=== PATIENT | female | born 1975 | race Two or more races ===

== ENCOUNTER 2016-07-13 12:58 | Emergency (ER) | payer MEDICAID ==
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
--- NOTE | 2016-07-14 09:08 | Diagnostic Imaging Report ---
Cervical spine (3 views) HISTORY: Pain There is straightening of the cervical lordosis that may be associated with spasm. Alignment is normal. Disc spaces are maintained. Minimal spur formation noted about the endplates of C5. No fractures. The prevertebral soft tissues appear normal. IMPRESSION: 1. No acute abnormalities 2. Minimal degenerative changes C5
== END 2016-07-13 15:10 | disposition short-term general hospital (02) ==
LOC: ER 12:58
DX: S16.1XXA Strain of muscle, fascia and tendon at neck level, initial encounter (principal); V43.52XA Car driver injured in collision with other type car in traffic accident, initial encounter; Y93.89 Activity, other specified; Y92.488 Other paved roadways as the place of occurrence of the external cause; Y99.8 Other external cause status
CPT/HCPCS: 72040-TC; Z7502

== ENCOUNTER 2017-02-26 16:40 | Inpatient (IN) | payer MEDICAID ==
[2017-02-26] MEDS ORDERED: Sodium Chloride 0.9% 1,000 ML IV ONE (16:51)
--- NOTE | 2017-02-26 16:51 | ED Physician Chart ---
ED Chief Complaint/HPI - Patient Information Date Seen:: 02/26/17 Time Seen:: 16:45 Chief Complaint:: Fever History of Present Illness:: onset x one day of fever, diffuse, crampy abd. pain, N/V/D, and H/As; pt denies LOC, ALOC, weakness, dizziness, S/T, neck pain, C/P, SOB, or urinary s/s Allergies:: Allergies Allergy/AdvReac Type Severity Reaction Status Date / Time No Known Allergies Allergy Verified 07/13/16 13:19 Historian:: Patient, Family Member Review:: Nurse's Note Reviewed ED Review of Systems - Review of Systems General/Constitutional: Fever, No chills, No weight loss, No weakness, No diaphoresis, No edema, No loss of appetite Skin: No skin lesions, No rash, No bruising Head: No headache, No light-headedness Eyes: No loss of vision, No pain, No diplopia ENT: No earache, No nasal drainage, No sore throat, No tinnitus Neck: No neck pain, No swelling, No thyromegaly, No stiffness, No mass noted Cardio Vascular: No chest pain, No palpitations, No PND, No orthopnea, No edema Pulmonary: No SOB, No cough, No sputum, No wheezing GI: Nausea, Vomiting, Diarrhea, Pain, No melena, No hematochezia, No constipation, No hematemesis G/U: Dysuria, Frequency, No hematuria Green Chain Operator: No vaginal discharge, No abnormal vaginal bleed, No contraction Musculoskeletal: No bone or joint pain, No back pain, No muscle pain Endocrine: No polyuria, No polydipsia Psychiatric: No prior psych history, No depression, No anxiety, No suicidal ideation Hematopoietic: No bruising, No lymphadenopathy Allergic/Immuno: No urticaria, No angioedema Neurological: No syncope, No focal symptoms, No weakness, No paresthesia, No headache, No seizure, No dizziness, No confusion, No vertigo ED Past Medical History - Past Medical History Obtainable: Yes Past Medical History: Other (UTI) Family History: HTN Social History: Non Smoker, No Alcohol, No Drug Use, , Employed Surgical History: Appendectomy, Cholecystectomy, Hysterectomy, Psychiatricy History: None Medication: Reviewed Family Medical History - Family Member Mother Ethnicity: Father Ethnicity: Living Status: Still Living Hx Family Diabetes: Yes ED Physical Exam - Physical Examination General/Constitutional: Awake, Well-developed, well-nourished, Alert, No distress, GCS 15, Non-toxic appearing, Ambulatory Head: Atraumatic Eyes: Lids, conjuctiva normal, PERRL, EOMI Skin: Nl inspection, No rash, No skin lesions, No ecchymosis, Well hydrated, No lymphadenopathy ENMT: External ears, nose nl, Nasal exam nl, Lips, teeth, gums nl Neck: Nontender, Full ROM w/o pain, No JVD, No nuchal rigidity, No bruit, No mass, No stridor Respiratory: Nl effort/Exclusion, Clear to Auscultation, No Wheeze/Rhonchi/Rales Cardio Vascular: RRR, No murmur, gallop, rubs, NL S1 S2 GI: No tenderness/rebounding/guarding, No organomegaly, No hernia, Normal BS's, Nondistended, No mass/bruits, No McBurney tenderness : No CVA tenderness Extremities: No tenderness or effusion, Full ROM, normal strength in all extremities, No edema, Normal digits & nails Neuro/Psych: Alert/oriented, DTR's symmetric, Normal sensory exam, Normal motor strength, Judgement/insight normal, Mood normal, Normal gait, No focal deficits Misc: Normal back, No paraspinal tenderness ED Labs/Radiology/EKG Results - Lab Results Results: K+: 3.2; Na+: 130; Cl-: 96; U/A; + WBCs; Elevated LFTs - EKG Interpretations EKG Time:: 17:19 Rate & Rhythm: 116; ST Comments:: non-specific st-t changes ED Septic Shock - . Is Septic Shock (SBP<90, OR Lactate>4 mmol\L) present?: No ED Reassessment (Disposition) - Diagnosis Diagnosis:: Dx: Dehydration; AGE; Hypokalemia; Hyponatremia; UTI - Aftercare/Follow up Instructions Aftercare/Follow-Up Instructions:: Counseled pt regarding lab results/diagnosis & need follow up, Counseled pt & family regarding lab results/diagnosis & need follow up - Patient Disposition Discharge/Transfer:: Acute Care w/in this hosp Accepting Physician:: Dr. De Oliveira Time Called:: 2149 Time Responded:: 21:50 Admitted to:: Telemetry Spoke to:: Dr. De Oliveira Admitting Medical Physician:: Dr. De Oliveira Condition at Disposition:: Stable, Improved
[2017-02-26 17:23] LABS: ALB/GLOB RATIO 0.9 (1.0-1.8); ALKALINE PHOSPHATASE 268 U/L (34-104); AMYLASE SERUM 13 U/L (29-103); ANION GAP 13.7 (7.0-16.0); BILIRUBIN,TOTAL 1.1 mg/dL (0.3-1.0); BUN - UREA NITROGEN 10 mg/dL (7-25); BUN/CREATININE RATIO 12.5; CARBON DIOXIDE 23.5 mEq/L (21.0-31.0); CHLORIDE 96 mEq/L (98-107); CREATININE - SERUM 0.8 mg/dL (0.6-1.2); GLUCOSE 128 mg/dL (70-105); POTASSIUM SERUM 3.2 mEq/L (3.5-5.1); SGOT 62 U/L (13-39); SGPT/ALT 117 U/L (7-52); SODIUM SERUM 130 mEq/L (136-145)
[2017-02-26 17:24] LABS: CHOLESTEROL 138 mg/dL (<200); TRIGLYCERIDES 162 mg/dL (<150)
[2017-02-26 17:47] LABS: LIPASE < 3 U/L (11-82)
[2017-02-26 17:58] LABS: INR 1.1 (0.5-1.4); PROTHROMBIN TIME (TEST) 11.5 SECONDS (9.5-11.5)
[2017-02-26 18:09] LABS: HEMOGLOBIN 12.4 gm/dL (12-16); RED BLOOD COUNT 4.22 Mil/cmm (3.80-5.10)
[2017-02-26 18:10] LABS: MEAN CELL VOLUME 89.9 fl (81-100); MEAN CORPUSCULAR HEMOGLOBIN 29.3 pg (27.0-31.0); MEAN CORPUSCULAR HGB CONC 32.6 pg (28.0-36.0); MEAN PLATELET VOLUME 7.6 fl; PLATELET COUNT 342 Th/cmm (150-400); RED CELL DISTRIBUTION WIDTH 11.8 % (11.5-20.0)
[2017-02-26 18:12] LABS: % BASOPHILS 0.4 % (0.0-2.0); % EOSINOPHILS 0.3 % (0.0-5.0); % LYMPHOCYTES 6.1 % (20.0-50.0); % MONOCYTES 0.3 % (2.0-10.0); % NEUTROPHILS 92.9 % (40.0-80.0); NEUTROPHILE ABSOLUTE 10.3 Th/cmm (1.8-8.0)
[2017-02-26 19:56] LABS: URINE BILIRUBIN NEGATIVE (NEGATIVE); URINE BLOOD LARGE (NEGATIVE); URINE GLUCOSE (UA) NEGATIVE (NEGATIVE); URINE KETONE NEGATIVE (NEGATIVE); URINE PH 5.5 (4.6 - 8.0); URINE PROTEIN TRACE mg/dL (NEGATIVE)
[2017-02-26 20:30] LABS: URINE BACTERIA NONE SEEN /hpf (NONE SEEN); URINE COLOR YELLOW; URINE EPITHELIAL CELLS NONE SEEN /lpf (FEW)
[2017-02-26] MEDS ORDERED: Potassium Chloride 20 mEq ER Tab PO ONE ×2 (20:45→20:48)
[2017-02-26] MEDS ORDERED: cefTRIAXone 1 GM in Sodium Chloride 0.9% 50 ML IV ONE (20:45)
[2017-02-26] MEDS ORDERED: HYDROmorphone 1 mg/mL 1mL Syr IVP PRN (22:57)
[2017-02-26] MEDS ORDERED: Sodium Chloride 0.9% 1,000 ML IV SCH (23:00)
[2017-02-27] MEDS: Sodium Chloride 0.9% 1,000 ML IV SCH ×2 (00:10→10:13)
[2017-02-27 00:22] VITALS: BP 104/62
[2017-02-27] MEDS: HYDROmorphone 1 mg/mL 1mL Syr IVP PRN ×4 (02:09→20:52)
[2017-02-27 06:17] LABS: HEMATOCRIT 32.9 % (41.0-60); HEMOGLOBIN 11.3 gm/dL (12-16); MEAN CELL VOLUME 89.3 fl (81-100); MEAN CORPUSCULAR HEMOGLOBIN 30.8 pg (27.0-31.0); MEAN CORPUSCULAR HGB CONC 34.5 pg (28.0-36.0); MEAN PLATELET VOLUME 7.7 fl; PLATELET COUNT 288 Th/cmm (150-400); RED BLOOD COUNT 3.68 Mil/cmm (3.80-5.10); RED CELL DISTRIBUTION WIDTH 11.9 % (11.5-20.0)
[2017-02-27 06:50] LABS: ALB/GLOB RATIO 0.8 (1.0-1.8); ALKALINE PHOSPHATASE 226 U/L (34-104); ANION GAP 10.9 (7.0-16.0); BILIRUBIN,TOTAL 0.8 mg/dL (0.3-1.0); BUN - UREA NITROGEN 6 mg/dL (7-25); CALCIUM SERUM 8.1 mg/dL (8.6-10.3); CHLORIDE 105 mEq/L (98-107); CREATININE - SERUM 0.6 mg/dL (0.6-1.2); GLUCOSE 107 mg/dL (70-105); SGOT 53 U/L (13-39); SGPT/ALT 95 U/L (7-52); SODIUM SERUM 137 mEq/L (136-145)
[2017-02-27 06:54] LABS: WHITE BLOOD COUNT 15.1 Th/cmm (4.8-10.8)
[2017-02-27 07:07] LABS: POTASSIUM SERUM 2.9 mEq/L (3.5-5.1)
--- NOTE | 2017-02-27 08:10 | Diagnostic Imaging Report ---
Exam: CT examination abdomen pelvis HISTORY: Abdominal pain and vomiting Total DLP equals 710 CTDI equals 12.9 Findings: Multiple contiguous thin section of the abdomen and pelvis obtained from lower thorax to pubic symphysis without the administration of intravenous or oral contrast material. No prior studies available comparison. The study demonstrates normal aeration of lung parenchyma the bases. The liver parenchyma and spleen are normal. There is evidence of previous cholecystectomy. The adrenal glands are intact. The kidneys demonstrate no evidence of obstructive uropathy or nephrolithiasis. The pancreas is normal. No free fluid is noted. There is evidence for ill-defined multiloculated mass in lower abdomen at upper pelvic area measuring 9.4 cm diameter with surrounding mesenteric induration. There is evidence for clips in the lower pelvic area most likely due to previous tubal ligation. Exact etiology isn't certain. This could represent inflammatory or neoplastic changes. COMPARISON with old studies for be helpful. The urinary bladder is intact. IMPRESSION: A large 9.4 cm abnormal multiloculated soft tissue density in the lower mid pelvic area with induration of surrounding mesentery and obscuration of the adjacent bowel. This might represent inflammatory changes, abscess formation or neoplastic process. Metallic clips in the area of interest might represent previous surgical tubal ligation. CT examination with contrast material might be helpful The Status post cholecystectomy
[2017-02-27 08:39] LABS: BAND NEUTROPHILE 7 % (0-10); EOSINOPHIL 1 % (0-5); NEUTROPHILS 81 % (40-80); TOTAL CELLS COUNTED 100
--- NOTE | 2017-02-27 08:44 | History and Physical ---
History of Present Illness - HPI Chief Complaint: Abdominal pain HPI: Abdominal Pain started 8 days ago, she went to ER and AB were prescribed, due that pain increased she came to ER. 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: No Pertinent Hx GI: Report: Other (Multiple abdominal surgeries) Psych: Report: No Pertinent Hx Musculoskeletal: Report: No Pertinent Hx Rheumatologic: Report: No pertinent Hx Infectious Disease: Report: Other (Multiple UTI's) Renal/: Report: No Pertinent Hx Endocrine: Report: No Pertinent Hx Dermatology: Report: No Pertinent Hx - Past Surgical History Past Surgical History: , Tubal Ligation (Cholecystectomy, Histerectomy , Removal of an abdominal mass), Tonsillectomy, Other Family Medical History - Family Member Mother Ethnicity: Father History Unknown: Yes Ethnicity: Living Status: Still Living Hx Family Diabetes: Yes Social History Smoke: No Alcohol: None Drugs: None Lives: With Family Domestic Violence: Negative - Medications Home Medications: Home Medication Medication Instructions Recorded Type Ibuprofen [Motrin*] 600 mg PO X1 02/26/17 History - Allergies Allergies/Adverse Reactions: Allergies Allergy/AdvReac Type Severity Reaction Status Date / Time No Known Allergies Allergy Verified 07/13/16 13:19 Review of Systems - Review of Systems Constitutional: Report: No Significant Eyes: Report: No Significant ENT: Report: No Significant Respiratory: Report: No Significant Cardiovascular: Report: No Significant Gastrointestinal: Report: Abdominal Pain, Other Genitourinary: Report: No Significant, Frequency Skin: Report: No Significant Neurological: Report: No Significant Physical Exam - Physical Exam HEENT: Report: Ears Nose Throat within normal limits Neck: Report: Within normal limits Cardiovascular Systems: Report: Regular, Rate and Rhythm Respiratory: Report: Breath Sounds are within normal limits Abdomen: Report: Tender to palpation, Bowel Sounds are within normal limits Back: Report: Inspection of back is within normal limits. Extremities: Report: Non-tender to palpation. Skin: Report: Color of skin is within normal limits, Warm, Dry Neuro/Psych: Report: Mood affect is within normal limits - Lab Results All Lab Results last 24 hours: Laboratory Last Values WBC 15.1 Th/cmm (4.8-10.8) H D 02/27/17 05:20 RBC 3.68 Mil/cmm (3.80-5.10) L 02/27/17 05:20 Hgb 11.3 gm/dL (12-16) L 02/27/17 05:20 Hct 32.9 % (41.0-60) L D 02/27/17 05:20 MCV 89.3 fl (81-100) 02/27/17 05:20 MCH 30.8 pg (27.0-31.0) 02/27/17 05:20 MCHC Differential 34.5 pg (28.0-36.0) 02/27/17 05:20 RDW 11.9 % (11.5-20.0) 02/27/17 05:20 Plt Count 288 Th/cmm (150-400) 02/27/17 05:20 MPV 7.7 fl 02/27/17 05:20 Neutrophils % 92.9 % (40.0-80.0) H 02/26/17 17:00 Lymphocytes % 6.1 % (20.0-50.0) L 02/26/17 17:00 Monocytes % 0.3 % (2.0-10.0) L 02/26/17 17:00 Eosinophils % 0.3 % (0.0-5.0) 02/26/17 17:00 Basophils % 0.4 % (0.0-2.0) 02/26/17 17:00 PT 11.5 SECONDS (9.5-11.5) 02/26/17 17:00 INR 1.10 (0.5-1.4) 02/26/17 17:00 Sodium 137 mEq/L (136-145) 02/27/17 05:20 Potassium 2.9 mEq/L (3.5-5.1) L* 02/27/17 05:20 Chloride 105 mEq/L (98-107) 02/27/17 05:20 Carbon Dioxide 24.0 mEq/L (21.0-31.0) 02/27/17 05:20 Anion Gap 10.9 (7.0-16.0) 02/27/17 05:20 BUN 6 mg/dL (7-25) L 02/27/17 05:20 Creatinine 0.6 mg/dL (0.6-1.2) 02/27/17 05:20 Est GFR ( Amer) > 60.0 ml/min (>90) 02/27/17 05:20 Est GFR (Non-Af Amer) > 60.0 ml/min 02/27/17 05:20 BUN/Creatinine Ratio 10.0 02/27/17 05:20 Glucose 107 mg/dL (70-105) H 02/27/17 05:20 POC Glucose 121 MG/DL (70 - 105) H 02/27/17 00:49 Calcium 8.1 mg/dL (8.6-10.3) L 02/27/17 05:20 Total Bilirubin 0.8 mg/dL (0.3-1.0) 02/27/17 05:20 AST 53 U/L (13-39) H 02/27/17 05:20 ALT 95 U/L (7-52) H 02/27/17 05:20 Alkaline Phosphatase 226 U/L (34-104) H 02/27/17 05:20 Creatine Kinase 28 U/L (30-223) L 02/26/17 17:00 Troponin I 0.05 ng/mL (0.01-0.05) 02/26/17 17:00 B-Natriuretic Peptide 58.1 pg/mL (5.0-100.0) 02/26/17 17:00 Total Protein 6.8 gm/dL (6.0-8.3) 02/27/17 05:20 Albumin 3.1 gm/dL (3.7-5.3) L 02/27/17 05:20 Globulin 3.7 gm/dL 02/27/17 05:20 Albumin/Globulin Ratio 0.8 (1.0-1.8) L 02/27/17 05:20 Triglycerides 162 mg/dL (<150) H 02/26/17 17:00 Cholesterol 138 mg/dL (<200) 02/26/17 17:00 LDL Cholesterol Direct 85 mg/dL (75-193) 02/26/17 17:00 HDL Cholesterol 19 mg/dL (23-92) L 02/26/17 17:00 Amylase 13 U/L (29-103) L 02/26/17 17:00 Lipase < 3 U/L (11-82) L 02/26/17 17:00 Serum , Qual NEGATIVE (NEGATIVE) 02/26/17 17:00 Urine Source CLEAN C 02/26/17 19:00 Urine Color YELLOW 02/26/17 19:00 Urine Clarity CLEAR (CLEAR) 02/26/17 19:00 Urine pH 5.5 (4.6 - 8.0) 02/26/17 19:00 Ur Specific Mcpherson 1.010 (1.005-1.030) 02/26/17 19:00 Urine Protein TRACE mg/dL (NEGATIVE) 02/26/17 19:00 Urine Glucose (UA) NEGATIVE mg/dL (NEGATIVE) 02/26/17 19:00 Urine Ketones NEGATIVE mg/dL (NEGATIVE) 02/26/17 19:00 Urine Blood LARGE (NEGATIVE) H 02/26/17 19:00 Urine Nitrate NEGATIVE (NEGATIVE) 02/26/17 19:00 Urine Bilirubin NEGATIVE (NEGATIVE) 02/26/17 19:00 Urine Urobilinogen 1.0 E.U./dL (0.2 - 1.0) 02/26/17 19:00 Ur Leukocyte Esterase MODERATE (NEGATIVE) H 02/26/17 19:00 Urine RBC 5-10 /hpf (0-5) H 02/26/17 19:00 Urine WBC 6-10 /hpf (0-5) H 02/26/17 19:00 Ur Epithelial Cells NONE SEEN /lpf (FEW) 02/26/17 19:00 Urine Bacteria NONE SEEN /hpf (NONE SEEN) 02/26/17 19:00 Urine Test NEGATIVE 02/26/17 19:00 Laboratory Results - last 24 hr 02/27/17 02/27/17 02/27/17 00:49 05:20 05:20 WBC 15.1 H D RBC 3.68 L Hgb 11.3 L Hct 32.9 L D MCV 89.3 MCH 30.8 MCHC Differential 34.5 RDW 11.9 Plt Count 288 MPV 7.7 Sodium 137 Potassium 2.9 L* Chloride 105 Carbon Dioxide 24.0 Anion Gap 10.9 BUN 6 L Creatinine 0.6 Est GFR ( Amer) > 60.0 Est GFR (Non-Af Amer) > 60.0 BUN/Creatinine Ratio 10.0 Glucose 107 H POC Glucose 121 H Calcium 8.1 L Total Bilirubin 0.8 AST 53 H ALT 95 H Alkaline Phosphatase 226 H Total Protein 6.8 Albumin 3.1 L Globulin 3.7 Albumin/Globulin Ratio 0.8 L - Assessment Assessment: Current Active Problems Problem Status Onset LOWER ABDOMINAL PAIN WITH SHIVERING Acute Patient is awake, alert, in some distress secondary to abdominal pain, Dx: elevated WBC, UTI, 9 cm abdominal mass, abdiminal pain - Plan Plan: Patient in sozyn, vanco, pain control, NPO, labs requested, consult with GI requested.
[2017-02-27] MEDS ORDERED: Potassium Chloride 40 MEQ, Lidocaine 1% 20mL Vial 25 MG in Sodium Chloride 0.9% 250 ML IV ONE (09:00)
[2017-02-27] MEDS: Vancomycin HCl 1.5 GM in Sodium Chloride 0.9% 500 ML IV SCH ×2 (10:41→18:38)
--- NOTE | 2017-02-27 11:01 | Diagnostic Imaging Report ---
Ultrasound abdomen HISTORY: Abdominal pain, previous cholecystectomy COMPARISON: CT abdomen and pelvis performed on 02/26/2017 Technique: Sonography of the abdomen was performed in multiple planes. FINDINGS: The liver demonstrates mild increased echogenicity and measures 20.7 cm no evidence of focal lesions. Patient is status post cholecystectomy. The common bile duct measures 5 mm. Evaluation of the pancreas is limited due to bowel gas. The right kidney measures measures 14.3 cm.. The left kidney measures 14.1 cm. Mild bilateral hydronephrosis is noted. No evidence of focal lesions. The spleen measures 12.2 cm. The visualized portions of abdominal aorta are within normal limits in size. IMPRESSION: Hepatomegaly with mild increased echogenicity which may be due to underlying fatty infiltration . Evidence of prior cholecystectomy Mild bilateral hydronephrosis. Mildly prominent bilateral renal size noted. Spleen is upper limits of normal in size.
--- NOTE | 2017-02-27 12:02 | Diagnostic Imaging Report ---
Exam: Ultrasound examination the pelvis HISTORY pain Findings: Real-time ultrasound summation of pelvis performed multiple planes. The uterus and ovaries not seen due to prior hysterectomy. The study is correlated with previous CT examination of the abdomen pelvis dated early The study demonstrates a large heterogeneous structure in the pelvic area measuring 9.6 x 4.7 x 5.6 cm with containing solid and cystic area component. IMPRESSION: Large heterogeneous pelvic mass measuring 9.6 x 4.7 x 5.6 cm diameter. Direct visualization is recommended.
[2017-02-27] MEDS ORDERED: cefTRIAXone 1 GM in Sodium Chloride 0.9% 50 ML IV SCH (21:00)
[2017-02-28] MEDS: Vancomycin HCl 1.5 GM in Sodium Chloride 0.9% 500 ML IV SCH ×2 (03:27→23:16)
[2017-02-28] MEDS: Sodium Chloride 0.9% 1,000 ML IV SCH ×2 (03:42→21:57)
[2017-02-28] MEDS: HYDROmorphone 1 mg/mL 1mL Syr IVP PRN ×5 (05:52→23:16)
[2017-02-28 06:41] LABS: % BASOPHILS 0.3 % (0.0-2.0); % EOSINOPHILS 0.5 % (0.0-5.0); % LYMPHOCYTES 14.9 % (20.0-50.0); % MONOCYTES 6.7 % (2.0-10.0); % NEUTROPHILS 77.6 % (40.0-80.0); HEMATOCRIT 31.9 % (41.0-60); HEMOGLOBIN 11.2 gm/dL (12-16); MEAN CELL VOLUME 89.5 fl (81-100); MEAN CORPUSCULAR HEMOGLOBIN 31.3 pg (27.0-31.0); MEAN PLATELET VOLUME 7.8 fl; NEUTROPHILE ABSOLUTE 11.7 Th/cmm (1.8-8.0); PLATELET COUNT 272 Th/cmm (150-400); RED BLOOD COUNT 3.57 Mil/cmm (3.80-5.10); RED CELL DISTRIBUTION WIDTH 12.1 % (11.5-20.0)
[2017-02-28 07:00] LABS: ALB/GLOB RATIO 0.8 (1.0-1.8); ALKALINE PHOSPHATASE 238 U/L (34-104); ANION GAP 8.8 (7.0-16.0); BILIRUBIN,TOTAL 0.9 mg/dL (0.3-1.0); BUN - UREA NITROGEN 3 mg/dL (7-25); CHLORIDE 102 mEq/L (98-107); CREATININE - SERUM 0.5 mg/dL (0.6-1.2); GLUCOSE 100 mg/dL (70-105); SGOT 97 U/L (13-39); SGPT/ALT 127 U/L (7-52); SODIUM SERUM 135 mEq/L (136-145)
[2017-02-28] MEDS ORDERED: Potassium Chloride 40 MEQ, Lidocaine 1% 20mL Vial 25 MG in Sodium Chloride 0.9% 250 ML IV ONE (07:14)
[2017-02-28 07:24] LABS: POTASSIUM SERUM 2.8 mEq/L (3.5-5.1)
[2017-02-28] MEDS ORDERED: Potassium Chloride 20 mEq ER Tab PO ONE (08:38)
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
[2017-02-28] MEDS ORDERED: Vancomycin HCl 1.5 GM in Sodium Chloride 0.9% 500 ML IV SCH (11:00)
[2017-02-28] MEDS ORDERED: Probiotic Screen MC PRN (14:20)
--- NOTE | 2017-02-28 23:41 | Consultation ---
DATE OF CONSULTATION: 02/28/2017 INPATIENT GASTROINTESTINAL CONSULTATION: REFERRING PHYSICIAN: Dr. De Oliveira. REASON FOR CONSULTATION: Pelvic mass. HISTORY OF PRESENT ILLNESS: A 41-year-old female, who has been having pelvic abdominal pain for the past several days. The patient felt that the pain was getting severe and therefore came to the hospital. She denies having any nausea or vomiting. She denies having any melena or hematochezia. She had pelvic ultrasound that shows the presence of a large pelvic mass. PAST MEDICAL HISTORY: Include benign pelvic tumor. PAST SURGICAL HISTORY: Hysterectomy, removal of pelvic mass. FAMILY HISTORY: Noncontributory. SOCIAL HISTORY: She denies tobacco, alcohol or IV drug usage. ALLERGIES: None. CURRENT MEDICATIONS: Tylenol, Dilaudid, vancomycin, Zofran, Zosyn, normal saline. REVIEW OF SYSTEMS: Ten point review of system was performed and the pertinent positive was the lower pelvic pain. All other systems were otherwise negative. PHYSICAL EXAMINATION: VITAL SIGNS: Temperature 98.6, breathing 19, pulse of 88, blood pressure 107/66, satting 98%. GENERAL: No apparent distress. EYES: Anicteric, normal conjunctivae. HEENT: Normocephalic, atraumatic. Moist mucous membranes. NECK: Soft, supple. CHEST: Clear. No effort. CARDIOVASCULAR: Regular rate and rhythm. ABDOMEN: Soft, nondistended, tender pelvic region or lower abdomen. SKIN: Warm and dry. EXTREMITIES: Revealed no cyanosis. PSYCHOLOGIC: Alert and oriented x 3. LABORATORY DATA: Show a white count of 15, hemoglobin 11.2, platelets of 272. INR is 1.1, total bilirubin 0.9, AST is 97, ALT of 127, alkaline phosphatase 238. Lipase is less than 3. test is negative. Urinalysis shows leukocyte esterase. Abdominal ultrasound showed hepatomegaly, cholecystectomy changes. IMPRESSION: This is a 41-year-old female with pelvic pain along with the pelvic mass that was seen on her pelvis ultrasound. The size of the mass measured at its greatest dimension to be 9.6 cm. There are very limited GI options for her pelvis mass and I would recommending the hospitalist to get a [employer] consultation to evaluate and visualize the pelvic mass. The patient was noted to have slightly elevated LFTs. Her ultrasound showed that she has fatty liver disease and it is possible that the elevated LFTs could be coming from fatty liver disease. In addition, she may have a component of pelvic inflammatory disease and sepsis, it could also cause a bump in her LFTs. LFTs can be monitored in the meantime, should liver enzymes remain elevated persistently, additional workup can be performed as well as a liver biopsy. She fatty liver condition. PLAN: 1. [employer] evaluation for pelvic mass. 2. Follow LFTs. 3. Consider outpatient management on fatty liver disease. 4. Continue supportive care. Thank you for allowing me to participate. Please call me if you have any questions. JOB# [id number]
[2017-03-01] MEDS: HYDROmorphone 1 mg/mL 1mL Syr IVP PRN ×5 (04:27→21:39)
[2017-03-01 06:23] LABS: % BASOPHILS 0.2 % (0.0-2.0); % EOSINOPHILS 0.9 % (0.0-5.0); % LYMPHOCYTES 15.2 % (20.0-50.0); % MONOCYTES 5.9 % (2.0-10.0); % NEUTROPHILS 77.8 % (40.0-80.0); HEMOGLOBIN 10.4 gm/dL (12-16); MEAN CELL VOLUME 89.1 fl (81-100); MEAN CORPUSCULAR HEMOGLOBIN 30.8 pg (27.0-31.0); MEAN CORPUSCULAR HGB CONC 34.6 pg (28.0-36.0); MEAN PLATELET VOLUME 7.3 fl; NEUTROPHILE ABSOLUTE 8.7 Th/cmm (1.8-8.0); PLATELET COUNT 299 Th/cmm (150-400); RED BLOOD COUNT 3.37 Mil/cmm (3.80-5.10); RED CELL DISTRIBUTION WIDTH 12.2 % (11.5-20.0)
[2017-03-01 06:39] LABS: WHITE BLOOD COUNT 11.2 Th/cmm (4.8-10.8)
[2017-03-01 06:46] LABS: ALB/GLOB RATIO 0.7 (1.0-1.8); ALKALINE PHOSPHATASE 248 U/L (34-104); ANION GAP 8.3 (7.0-16.0); BILIRUBIN,DIRECT 0.46 mg/dL (0.0-0.2); BILIRUBIN,TOTAL 0.9 mg/dL (0.3-1.0); BUN - UREA NITROGEN 3 mg/dL (7-25); BUN/CREATININE RATIO 4.3; CALCIUM SERUM 8.3 mg/dL (8.6-10.3); CARBON DIOXIDE 28.3 mEq/L (21.0-31.0); CHLORIDE 106 mEq/L (98-107); CREATININE - SERUM 0.7 mg/dL (0.6-1.2); GLUCOSE 112 mg/dL (70-105); POTASSIUM SERUM 3.6 mEq/L (3.5-5.1); SGOT 93 U/L (13-39); SGPT/ALT 138 U/L (7-52); SODIUM SERUM 139 mEq/L (136-145)
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
[2017-03-01] MEDS: Vancomycin HCl 1.5 GM in Sodium Chloride 0.9% 500 ML IV SCH ×2 (08:42→19:29)
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
[2017-03-01 11:13] LABS: HEP B CORE IGM Negative (Negative); HEP C ANTIBODY <0.1 s/co ratio (0.0-0.9)
[2017-03-01] MEDS: Lactobacillus Rhamnosus 10 Billion CFU Capsule PO SCH (13:44)
[2017-03-01] MEDS: Sodium Chloride 0.9% 1,000 ML IV SCH (17:04)
--- NOTE | 2017-03-01 21:45 | Consultation ---
DATE OF CONSULTATION: 02/28/2017 INFECTIOUS CONSULT PRIMARY CARE PHYSICIAN: Dr. De Oliveira. HISTORY OF PRESENT ILLNESS: This is a 41-year-old female who was brought to the Emergency with complaint of diarrhea and abdominal pain. HISTORY OF PRESENT ILLNESS: The patient started having above symptoms for last 2 weeks, gradually got worse to the point that she was unable to tolerate pain and came to Emergency Room, where the patient was evaluated. PAST MEDICAL HISTORY: The patient had past medical history of UTI. Previous history of pelvic tumor. FAMILY HISTORY: Hypertension. PAST SURGICAL HISTORY: Hysterectomy and . REVIEW OF SYSTEMS: 14-point review of systems negative except above. SOCIAL HISTORY: Nonsmoker. ALLERGIES: No allergies. PHYSICAL EXAMINATION: GENERAL: The patient is alert and awake, well-nourished female. VITAL SIGNS: Temperature is 98, pulse 19, respirations 88, and blood pressure 100/66. HEENT: Mild pallor. No icterus or plaque. NECK: Supple. LUNGS: Breath sounds bilateral vesicular. CARDIOVASCULAR: S1, S2. ABDOMEN: Soft. Lower abdominal tenderness. No thyroid. No cervical lymph nodes. EXTREMITIES: No pedal edema. Gait is normal. LABORATORY DATA: White count 15,000. CT of the abdomen and pelvis, pelvic ultrasound shows pelvic mass. UA is positive for UTI. DIAGNOSES: Urinary tract infection, pelvic mass, and gastroenteritis. PLAN: The patient needs GI surgery and OBG consults. Meanwhile, the patient empirically started Zosyn and vancomycin. Supportive care. Rest of the care as ordered in CPOE. Thank you, Dr. De Oliveira for this consultation. [facility]# [id number]
[2017-03-01 22:28] LABS: AMPHETAMINE URINE NEGATIVE (NEGATIVE); BARBITURATES URINE NEGATIVE (NEGATIVE); METHADONE URINE NEGATIVE (NEGATIVE)
[2017-03-02] MEDS: HYDROmorphone 1 mg/mL 1mL Syr IVP PRN ×3 (04:22→13:59)
[2017-03-02 06:22] LABS: ALB/GLOB RATIO 0.7 (1.0-1.8); ALKALINE PHOSPHATASE 266 U/L (34-104); BILIRUBIN,DIRECT 0.46 mg/dL (0.0-0.2); BILIRUBIN,TOTAL 0.9 mg/dL (0.3-1.0); SGOT 64 U/L (13-39); SGPT/ALT 115 U/L (7-52)
[2017-03-02] MEDS: Sodium Chloride 0.9% 1,000 ML IV SCH (07:50)
[2017-03-02] MEDS: Lactobacillus Rhamnosus 10 Billion CFU Capsule PO SCH (08:21)
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
[2017-03-02] MEDS: Vancomycin HCl 1.5 GM in Sodium Chloride 0.9% 500 ML IV SCH (09:27)
--- NOTE | 2017-03-02 10:49 | Consultation ---
DATE OF CONSULTATION: 03/02/2017 REFERRING PHYSICIAN: Dr. De Oliveira. REASON FOR CONSULTATION: Pelvic mass. Thank you for referring this patient to me. HISTORY OF PRESENT ILLNESS: This is a 41-year-old female who has had abdominal pain for 8 days prior to coming to the Emergency Room. PAST HISTORY: Significant in that in 2012, she underwent partial hysterectomy at [facility] with removal of ovarian mass. A year later, she underwent total hysterectomy at [facility] also and at that time, it appears that she may have ____ ureteral stent placed. She denied malignancy involving any of these resections. The laboratory studies showed CBC was essentially normal. Chemistry, some elevation of the liver enzymes. CT scan of the abdomen showed evidence of previous surgery in the pelvis, but there is a 9.4 cm mass in the pelvis. A pelvic ultrasound was done confirming the mass. PHYSICAL EXAMINATION: The patient is obese. Scar in the lower abdomen from previous surgery was noted. There is moderate tenderness present. 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 JOB# [id number]
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
[2017-03-02 11:07] LABS: % BASOPHILS 0.1 % (0.0-2.0); % EOSINOPHILS 1.9 % (0.0-5.0); % MONOCYTES 6.2 % (2.0-10.0); % NEUTROPHILS 70.8 % (40.0-80.0); HEMATOCRIT 30.1 % (41.0-60); HEMOGLOBIN 10.1 gm/dL (12-16); MEAN CELL VOLUME 90.7 fl (81-100); MEAN CORPUSCULAR HEMOGLOBIN 30.5 pg (27.0-31.0); MEAN CORPUSCULAR HGB CONC 33.6 pg (28.0-36.0); NEUTROPHILE ABSOLUTE 7.6 Th/cmm (1.8-8.0); PLATELET COUNT 324 Th/cmm (150-400); RED BLOOD COUNT 3.32 Mil/cmm (3.80-5.10); RED CELL DISTRIBUTION WIDTH 12.2 % (11.5-20.0); WHITE BLOOD COUNT 10.7 Th/cmm (4.8-10.8)
--- NOTE | 2017-03-02 20:26 | Progress Notes ---
DATE: 03/02/2017 HISTORY OF PRESENT ILLNESS: This is a 41-year-old female who was brought to the Emergency with pelvic pain, moderate to severe. The patient also was found to have UTI, started on antibiotic. Workup shows pelvic mass. Because of the lack of MEAT PASSER, the patient agreed to transfer to [facility]. The patient labs at the time of transfer are white count normalized at 10,000, hemoglobin 7 g, and platelets 324,000. Urine culture remained negative and stool Shiga toxin negative. PHYSICAL EXAMINATION: VITAL SIGNS: Stable. HEENT: Mild pallor. No icterus or plaque. NECK: Supple. No thyromegaly. LUNGS: Breath sounds bilateral vesicular. ABDOMEN: Lower abdominal tenderness. DIAGNOSIS: Pelvic mass. PLANT: The patient is continued on vancomycin and Zosyn. MEAT PASSER evaluation, surgery, and probably GI workup, and referral to [facility]. JOB# [id number]
[2017-03-04 10:21] LABS: CERULOPLASMIN 34.8 mg/dL (19.0-39.0)
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
== END 2017-03-02 14:45 | disposition short-term general hospital (02) | DRG 463 ==
LOC: ER 16:40 → MSI 21:50
PROVIDERS: ADMIT General Practice; ATTEND General Practice
DX: N39.0 Urinary tract infection, site not specified (principal); E87.1 Hypo-osmolality and hyponatremia; R19.00 Intra-abdominal and pelvic swelling, mass and lump, unspecified site; E86.0 Dehydration; E87.6 Hypokalemia; K52.9 Noninfective gastroenteritis and colitis, unspecified; E66.9 Obesity, unspecified; Z90.49 Acquired absence of other specified parts of digestive tract; Z90.710 Acquired absence of both cervix and uterus; Z68.35 Body mass index [BMI] 35.0-35.9, adult
CPT/HCPCS: 36415-UA; 76700-TC; 76856-TC; 80053-TC; 80061-TC; 80074-90; 80076-TC; 80202-TC; 80307; 80329-TC; 81001-TC; 81025-TC; 82103-90; 82150-TC; 82248-TC; 82390-90; 82550-TC; 82728-90; 82948-90; 83516-90; 83540-90; 83550-90; 83690-TC; 83880-TC; 84484-TC; 84703-TC; 85007-TC; 85025-TC; 85027-TC; 85610-TC; 86255-90; 86301-90; 86304-90; 87046-90; 87086-90; 87230-TC; 89055-TC; 93005; 94760; J0696; J1170; J2001; J2543; J3370; J3480; J7030; J7040; Z7610